=== PATIENT | female | born 1965 | race Hispanic/Latino ===

== ENCOUNTER 2019-09-15 09:56 | Emergency (ER) | payer OTHER ==
[2019-09-20] MEDS ORDERED: ASPI-1026 PO ×2 (21:17)
[2019-09-20] MEDS ORDERED: DEXA6TAB PO ×2 (21:17)
[2019-09-20] MEDS ORDERED: LEVO500T89 PO ×2 (21:17)
== END 2019-09-15 11:25 | disposition home or self-care (01) ==
LOC: EDH 09:56
DX: U07.1 COVID-19 (principal); R50.9 Fever, unspecified; R51 Headache; R43.0 Anosmia
CPT/HCPCS: 36415; 99283; U0003

== ENCOUNTER 2019-09-17 | Inpatient (IN) | payer OTHER | END 2019-09-21 00:08 | disposition home or self-care (01) | DRG 177 | PROVIDERS: ADMIT Hospitalist ==